=== PATIENT | female | born 1955 | race Caucasian/White ===

== ENCOUNTER → 2016-08-10 | Day surgery (SDC) | payer OTHER ==
[~2016-08-10] VITALS: Ht 160 cm; Wt 124.2 kg
[~2016-08-10] MED LIST: *HYDROmorphone PF 1 MG VIAL PERIprocedural Use ONLY ONE; *morphine SULFATE 8 MG/ML PERIprocedure ONLY ONE; ACETAMINOPHEN 1000 MG/100 ML VIAL IV ONE; ACTO15TA11 PO; CEPH500C PO; CHLORHEXIDINE GLUCONATE 2 % 1 PACK (2 CLOTHS) TOPICAL PRN; CHLORHEXIDINE GLUCONATE 4% SOLN 120 ML BTL TOPICAL SCH; DAPA1TAB PO; DO NOT ADM ANY ANTICOAGULANT DRUGS PRN; FAMOTIDINE 20 MG/2 ML VIAL ONE; GENTAMICIN SULFATE 80 MG/2 ML VIAL IRRIGATION ONE; GENTAMICIN SULFATE 80 MG/2 ML VIAL ONE; INSULIN HUMAN REGULAR 1,000 UNITS/10 ML VIAL SQ PRN; KETOROLAC TROMETHAMINE 30 MG/ML (IVP) VIAL IVP ONE; LACTATED RINGER'S 1000 ML IV PRN; LISI-519 PO; METOPROLOL TARTRATE 25 MG TAB PO PRN; MIDAZOLAM HCL 2 MG/2 ML VIAL ONE; MORPHINE SULFATE 4 MG/ML INJ IV PUSH PRN; NEOSTIGMINE 3 MG/3 ML SYR IV ONE; ONDANSETRON HCL 4 MG/2 ML VIAL IV PRN; ONDANSETRON HCL 4 MG/2 ML VIAL IV PUSH ONE; OXYC-432 PO; PERC5TAB12 PO; PHENYLEPH/NS 1000 MCG/10 ML SYR IV ONE; POVIDONE IODINE 5% (ANTISEPSIS KIT) 4 APPLICATIONS EACH NARE PRN; PROPOFOL 200 MG/20 ML AMP IV ONE; ROPI0.5T PO; SODIUM CHLORID 0.9% 500 ML IV PRN; SODIUM CHLORIDE 0.9% FLUSH 10 ML FLUSH IV FLUSH PRN; SODIUM CHLORIDE 0.9% FLUSH 10 ML FLUSH IV FLUSH SCH; TIMO10SO EACH EYE; VANCOMYCIN 1000 MG/NS 250 ML (for <70 kg) IV SCH; ZOCO40TA PO; ZOFR8TAB PO; ZOLO100T PO; ceFAZolin 2 GM PREMIX 50 ML IV SCH; ceFAZolin INJ 1,000 MG VIAL IV ONE; ePHEDrine/NS 25 MG/5 ML SYR IV ONE; fentaNYL CITRATE 250 MCG/5 ML AMP ONE; oxyCODONE/ACETAMINOPHEN 5 MG/325 MG TAB PO PRN
[2016-08-10 06:23] VITALS: BP 144/72; PULSE 79; RESP 20; TEMP 98.7; O2SAT 95
--- NOTE | 2016-08-10 10:31 | EKG ---
Date Performed: 08/10/2016 Time Performed: 06:29:37 PTAGE: 61 years EKG: Sinus rhythm NORMAL ECG NO PREVIOUS TRACING DOCTOR: Gerald Thomas Interpretating Date/Time 08/10/2016 10:29:53
--- NOTE | 2016-08-10 10:46 | RADRPT ---
EXAM DATE/TIME: 08/10/2016 10:05 [facility] COMPARISON: FLUOROSCOPY PORTABLE UP TO 1HR, August 10, 2016, 0:00. INDICATIONS : Open reduction internal fixation of the right shoulder. MEDICAL HISTORY : None. SURGICAL HISTORY : None. ENCOUNTER: Initial ACUITY: 1 day PAIN SCORE: Non-responsive. LOCATION: Right shoulder. FINDINGS: The patient has undergone plating of a fracture through the proximal humerus. Orthopedic hardware is in excellent position. CONCLUSION: 1. Good alignment of the patient's humeral fracture post plating. Josue Colon MD on August 10, 2016 at 10:32 Board Certified Radiologist. This report was verified electronically.
--- NOTE | 2016-08-10 10:54 | PD.OP ---
cc: Guille Kurtz Jr., MD Operative Report Date of Surgery: Aug 10, 2016 Preoperative Diagnosis: Right closed 2 part displaced proximal humerus fracture Postoperative Diagnosis: Same Procedure: Open reduction of fixation right proximal humerus Anesthesia: Gen. 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 Risks of anesthesia, infection, bleeding, neurovascular damage, stiffness, continued pain, incomplete pain relief, weakness, difficulty with range of motion all explained, nonoperative options outlined. The patient accepts risks and agrees to proceed with planned procedure. DESCRIPTION OF PROCEDURE The patient was taken to the operating room. General endotracheal anesthesia induced without incident. The patient placed in the beach chair position, right upper extremity was sterilely prepped and draped. Prophylactic antibiotics were confirmed. Sterile prepping and draping ensued. A deltopectoral incision was made. The deltopectoral interval was opened. The cephalic vein was retracted laterally. Subacromial bursa, the subdeltoid bursa was gently dissected, freed with blunt dissection and the brown deltoid retractor was inserted. The clavipectoral fascia was debrided. The biceps tendon was identified. The subscapularis was found to be intact in the rotator interval. Fracture site was identified. A small proximal part of the pectoralis major insertion was detached. With gentle traction and rotation the fracture was reduced and provisionally fixed with K wires. Reduction was confirmed under fluoroscopy. A synthes proximal humerus locking plate was used and provisionally maintained with K wires. The plate was secured to bone in the shaft with a cortical screw. Multiple locking screws was placed into the proximal part of plate into the proximal humerus and head and additional locking screws placed in the shaft. Multi-planer fluoroscopy was used to confirm perfect fracture reduction, screw length and plate position .The wound was copiously irrigated after hemostasis was obtained with the Bovie. The wound was closed with 0 Vicryl, 2-0 Vicryl, skin was closed with howard and sterile dressing was applied. The patient tolerated the procedure well. There were no complications. Guille Kurtz Jr., MD Aug 10, 2016 10:54
[2016-08-10 13:30] VITALS: BP 123/69; PULSE 80; RESP 16; TEMP 98.5; O2SAT 95
== END | disposition home or self-care (01) ==
LOC: HSDC 05:40
PROVIDERS: ATTEND Orthopaedic Surgery
DX: S42.201A Unspecified fracture of upper end of right humerus, initial encounter for closed fracture (principal); I10 Essential (primary) hypertension; E66.01 Morbid (severe) obesity due to excess calories; Z68.42 Body mass index [BMI] 45.0-49.9, adult; W19.XXXA Unspecified fall, initial encounter; Y93.9 Activity, unspecified; Y99.0 Civilian activity done for income or pay
CPT/HCPCS: 01630; 23615; 73030; 76000; 93005; C1713; J0131; J0690; J1170; J1580; J1885; J2250; J2270; J2370; J2405; J2710; J3010; J3370; J7050; J7120